=== PATIENT | female | born 1955 | race Caucasian/White ===

== ENCOUNTER 2017-09-13 09:00 | Emergency (ER) | payer OTHER ==
[~2017-09-13] VITALS: Ht 162.6 cm; Wt 76.7 kg
[~2017-09-13 09:00] MED LIST: ATORVASTATIN CA40 MG PO; BAYER CHEWABLE81 MG PO; FAMOTIDINE40 MG PO; INSULIN PUMP SCCONT; LANTUS 10100 UNITS/ SC; LISINOPRIL10 MG PO; LORAZEPAM1 MG PO; NOVOLOG PE100 UNITS/ SC; ODOR FREE GARL1 EACH PO; PIOGLITAZONE HC30 MG PO; RALOXIFENE HCL60 MG PO; SERTRALINE HCL100 MG PO; SERTRALINE HCL50 MG PO; SYMLINPEN2700 MCG/2 SC; TRESIBA SQ; TRIAMTERENE-HC1 EAC1 PO; VITAMIN D22000 UNIT PO
[2017-09-13 09:58] LABS: CARBON DIOXIDE (BICARBONATE) 25.7 MEQ/L (20-31)
[2017-09-13 10:02] LABS: BASOPHIL (%) 0.2 % (0-1); CHLORIDE 101 mEq/L (99-109); EOSINOPHIL (%) 0 % (0-5); HEMATOCRIT 38.4 % (36.0-46.0); HEMOGLOBIN 13.5 G/DL (11.9-15.5); IMMATURE GRANULOCYTE (%) 0.4 % (0.0-0.7); LYMPHOCYTE (%) 16.7 % (15-42); LYMPHOCYTE COUNT 0.8 K/uL (1.0-2.8); MCH 30.5 PG (29.0-34.0); MCHC 35.2 G/DL (30.0-36.0); MCV 86.9 FL (83-99); MONOCYTE (%) 18.4 % (3-12); MONOCYTE COUNT 0.9 K/uL (0-0.8); NEUTROPHIL (%) 64.3 % (45-76); PLATELET COUNT 187 K/uL (156-360); POTASSIUM 3.6 mEq/L (3.7-5.4); RBC DIS.WIDTH-CV 12.4 % (11.8-14.6); RBC DIS.WIDTH-SD 39.8 % (39-53); RED BLOOD COUNT 4.42 M/uL (3.80-5.20); SODIUM 138 mEq/L (136-147); WHITE BLOOD COUNT 4.6 K/uL (4.1-10.2)
[2017-09-13 10:04] LABS: GLUCOSE 217 mg/dL (70-99)
[2017-09-13 10:07] LABS: CREATININE 0.9 mg/dL (0.6-1.3); GFR ESTIMATE (CALCULATED) > 59 mL/min/
[2017-09-13 10:08] LABS: UREA NITROGEN (BUN) 19 mg/dL (9-23)
[2017-09-13 11:56] LABS: APPEARANCE SL.HAZY ((CLEAR)); BILIRUBIN NEGATIVE; BLOOD NEGATIVE; COLOR YELLOW ((YELLOW)); GLUCOSE (STRIP) >=500; KETONES 20; LEUKOCYTES NEGATIVE; NITRITE POSITIVE; PROTEIN (STRIP) 30; SPECIFIC GRAVITY 1.017 (1.000-1.030)
[2017-09-13 12:04] LABS: BACTERIA 3+ /HPF; EPITHELIAL CELLS 1+ /HPF; MUCUS 1+ /LPF; RED BLOOD CELLS 0-5 /HPF (0-5); WHITE BLOOD CELLS 0-5 /HPF (0-5)
[2017-09-13] MEDS ORDERED: ZOFRAN4 MG PO (13:49)
[2017-09-13] MEDS ORDERED: CIPRO500 MG PO (13:49)
[2017-09-13 14:08] VITALS: BP 150/77
== END 2017-09-13 14:34 | disposition home or self-care (01) ==
LOC: EME 09:00
PROVIDERS: Emergency Medicine
DX: R11.2 Nausea with vomiting, unspecified (principal); E86.0 Dehydration; E11.9 Type 2 diabetes mellitus without complications; N39.0 Urinary tract infection, site not specified; I10 Essential (primary) hypertension; E78.5 Hyperlipidemia, unspecified; F32.9 Major depressive disorder, single episode, unspecified; Z79.84 Long term (current) use of oral hypoglycemic drugs; Z87.891 Personal history of nicotine dependence; Z90.49 Acquired absence of other specified parts of digestive tract
CPT/HCPCS: 71045; 80048; 81003; 82010; 82803; 85025; 99281; 99285; J2405; J7030

== ENCOUNTER 2017-10-17 11:24 | Emergency (ER) | payer OTHER ==
[~2017-10-17] VITALS: Ht 165.1 cm; Wt 76.3 kg
[~2017-10-17 11:24] MED LIST changes: +CIPRO500 MG PO; +ZOFRAN4 MG PO
[2017-10-17] MEDS ORDERED: NEXIUM40 MG PO (12:16)
[2017-10-17 12:17] LABS: HEMATOCRIT 41.4 % (36.0-46.0); HEMOGLOBIN 14.2 G/DL (11.9-15.5); MCH 30.6 PG (29.0-34.0); MCHC 34.3 G/DL (30.0-36.0); MCV 89.2 FL (83-99); PLATELET COUNT 312 K/uL (156-360); RBC DIS.WIDTH-CV 12.8 % (11.8-14.6); RBC DIS.WIDTH-SD 42.1 % (39-53); RED BLOOD COUNT 4.64 M/uL (3.80-5.20); WHITE BLOOD COUNT 8.4 K/uL (4.1-10.2)
[2017-10-17 12:24] LABS: CHLORIDE 100 mEq/L (99-109); POTASSIUM 4.6 mEq/L (3.7-5.4); SODIUM 140 mEq/L (136-147)
[2017-10-17 12:25] LABS: GLUCOSE 193 mg/dL (70-99)
[2017-10-17 12:29] LABS: CREATININE 1.1 mg/dL (0.6-1.3); GFR ESTIMATE (CALCULATED) 54 mL/min/
[2017-10-17 12:30] LABS: UREA NITROGEN (BUN) 21 mg/dL (9-23)
[2017-10-17 12:36] LABS: TROP-I INTERPRETATION NEGATIVE; TROPONIN-I 0.01 ng/mL (0.0-0.30)
[2017-10-17] MEDS ORDERED: ZOFRAN ODT8 MG PO (12:49)
[2017-10-17 13:31] VITALS: BP 143/81
== END 2017-10-17 13:34 | disposition home or self-care (01) ==
LOC: EME 11:24
PROVIDERS: Emergency Medicine Emergency Medical Services
DX: R10.10 Upper abdominal pain, unspecified (principal); R11.2 Nausea with vomiting, unspecified; K21.9 Gastro-esophageal reflux disease without esophagitis; I10 Essential (primary) hypertension; E78.5 Hyperlipidemia, unspecified; F32.9 Major depressive disorder, single episode, unspecified; Z87.891 Personal history of nicotine dependence; Z90.49 Acquired absence of other specified parts of digestive tract
CPT/HCPCS: 71045; 80048; 82948; 84484; 85027; 93005; 99281; 99284; S0028

== ENCOUNTER 2017-11-05 16:27 | Emergency (ER) | payer OTHER ==
[~2017-11-05] VITALS: Ht 165.1 cm; Wt 70.4 kg
[~2017-11-05 16:27] MED LIST changes: +NEXIUM40 MG PO; +ZOFRAN ODT8 MG PO
[2017-11-05 17:41] LABS: BASOPHIL (%) 0.5 % (0-1); BASOPHIL COUNT 0.1 K/uL (0-0.1); EOSINOPHIL (%) 0.1 % (0-5); HEMOGLOBIN 14.4 G/DL (11.9-15.5); IMMATURE GRANULOCYTE (%) 0.2 % (0.0-0.7); LYMPHOCYTE (%) 7.3 % (15-42); MCH 30.4 PG (29.0-34.0); MCHC 34.3 G/DL (30.0-36.0); MCV 88.8 FL (83-99); MONOCYTE (%) 4.1 % (3-12); MONOCYTE COUNT 0.5 K/uL (0-0.8); NEUTROPHIL (%) 87.8 % (45-76); NEUTROPHIL COUNT 11.4 K/uL (1.8-6.4); PLATELET COUNT 310 K/uL (156-360); RBC DIS.WIDTH-CV 12.5 % (11.8-14.6); RBC DIS.WIDTH-SD 41.1 % (39-53); RED BLOOD COUNT 4.73 M/uL (3.80-5.20)
[2017-11-05 17:47] LABS: CARBON DIOXIDE (BICARBONATE) 28.6 MEQ/L (20-31)
[2017-11-05 17:50] LABS: ALBUMIN 4.2 g/dL (3.2-4.8); CHLORIDE 97 mEq/L (99-109); POTASSIUM 3.9 mEq/L (3.7-5.4); SODIUM 139 mEq/L (136-147)
[2017-11-05 17:52] LABS: GLUCOSE 328 mg/dL (70-99); TOTAL PROTEIN 8.1 g/dL (6.4-8.3)
[2017-11-05 17:54] LABS: TOTAL BILIRUBIN 0.7 mg/dL (0.0-1.0)
[2017-11-05 17:56] LABS: ALKALINE PHOSPHATASE 102 IU/L (3-129); CREATININE 1.4 mg/dL (0.6-1.3); GFR ESTIMATE (CALCULATED) 41 mL/min/
[2017-11-05 17:57] LABS: AST (GOT) 23 IU/L (2-34); UREA NITROGEN (BUN) 23 mg/dL (9-23)
[2017-11-05 17:59] LABS: ALT (GPT) 18 IU/L (3-49)
[2017-11-05 18:04] LABS: TROP-I INTERPRETATION NEGATIVE; TROPONIN-I < 0.01 ng/mL (0.0-0.30)
[2017-11-05 18:21] LABS: APPEARANCE CLEAR ((CLEAR)); BILIRUBIN NEGATIVE; BLOOD NEGATIVE; COLOR YELLOW ((YELLOW)); GLUCOSE (STRIP) >=500; KETONES 20; LEUKOCYTES NEGATIVE; NITRITE NEGATIVE; PROTEIN (STRIP) 30; SPECIFIC GRAVITY 1.023 (1.000-1.030); UCUL ADDED? NO
[2017-11-05 20:30] LABS: CHLORIDE 104 mEq/L (99-109); POTASSIUM 4.4 mEq/L (3.7-5.4); SODIUM 141 mEq/L (136-147)
[2017-11-05 20:32] LABS: GLUCOSE 260 mg/dL (70-99)
[2017-11-05 20:35] LABS: CREATININE 1.2 mg/dL (0.6-1.3); GFR ESTIMATE (CALCULATED) 49 mL/min/
[2017-11-05 20:36] LABS: UREA NITROGEN (BUN) 24 mg/dL (9-23)
[2017-11-05] MEDS ORDERED: REGLAN10 MG PO (20:56)
[2017-11-05] MEDS ORDERED: ZOFRAN ODT4 MG PO (20:56)
[2017-11-05 21:25] VITALS: BP 127/62
== END 2017-11-05 21:34 | disposition home or self-care (01) ==
LOC: EME 16:27
PROVIDERS: Emergency Medicine
DX: E11.65 Type 2 diabetes mellitus with hyperglycemia (principal); K31.84 Gastroparesis; Z79.4 Long term (current) use of insulin; K21.9 Gastro-esophageal reflux disease without esophagitis; E78.5 Hyperlipidemia, unspecified; F32.9 Major depressive disorder, single episode, unspecified; Z90.49 Acquired absence of other specified parts of digestive tract; Z87.891 Personal history of nicotine dependence; I10 Essential (primary) hypertension
CPT/HCPCS: 80048 91; 80053; 81003; 82010; 82803; 82948; 84484; 85025; 93005; 99281; 99285; J2405; J2765; J7030